=== PATIENT | female | born 1965 | race Caucasian/White ===

== ENCOUNTER → 2018-01-15 15:43 | Outpatient (CLI) | payer OTHER, BC, SELFPAY ==
--- NOTE | 2018-01-15 15:46 | RAD_ITS ---
STUDY: X-RAY - LEFT FOOT CLINICAL: Female, 52 years old. Bump on top of foot. No history of trauma TECHNIQUE: 3 view(s) of the foot. COMPARISON: None. FINDINGS: Normal talus, calcaneus, and tarsal bones. There is arthrosis of visualized subtalar, talonavicular, calcaneocuboid, tarsal and tarsometatarsal articulations. Normal metatarsi. Normal metatarsophalangeal joint of the great toe. Normal tibial and fibular sesamoid bones. Normal interphalangeal joint of the great toe. Normal phalanges of the great toe. Normal second through fifth metatarsophalangeal joints. Normal interphalangeal joints and phalanges of the lesser toes. The soft tissue structures are unremarkable. RAD/Foot min 3 Views IMPRESSION: Arthrosis of the midfoot. The arthrosis at the carpometacarpal articulations may account for the pump along the dorsum of the foot described in patient history. Electronically Signed: Bradford Garcia DO at 16:08 EDT Tel [phone], Service support ,
== END ==
PROVIDERS: Family Provider Family Medicine; PCP Family Medicine; Visit Provider Orthopaedic Surgery
DX: M79.672 Pain in left foot (principal)
CPT/HCPCS: 73630

== ENCOUNTER → 2020-03-14 | Outpatient (CLI) | payer OTHER, BC, SELFPAY ==
[2020-03-10 09:43] VITALS: BMI 38.9
[2020-03-14 08:40] LABS: Hematocrit 44.1 % (37-47); Hemoglobin 13.7 g/dL (12.0-15.0); Mean Corp Hgb Conc 31.1 g/dL (32-36); Mean Corpuscular Hgb 28.1 pg (27.0-32.0); Mean Corpuscular Volume 90.6 fL (81-99); Mean Platelet Vol. 12.5 fl (6.2-12.0); Platelet Count 242 K/mm3 (150-450); RBC Distribution Width CV 14.4 % (11.6-14.6); RBC Distribution Width SD 47.9 fl (35.1-43.9); Red Blood Count 4.87 M/mm3 (4.2-5.4)
[2020-03-14 09:04] LABS: AST(SGOT) 20 U/L (15-37); Alanine Aminotransfer ALT/SGPT 35 U/L (13-56); Albumin, Serum 3.3 g/dL (3.2-5.0); Alkaline Phosphatase 113 U/L (45-117); Anion Gap 6 (5-15); BUN 13 mg/dL (7-18); BUN/Creat Ratio 19.2 RATIO (10-20); Calcium,Total 8.6 mg/dL (8.5-10.1); Chloride 111 mmol/L (98-107); Cholesterol 253 mg/dL (200); Creatinine, Serum 0.68 mg/dL (0.55-1.02); EST Glomerular Filtration Rate 96 mL/min (>60); Est Glom Filt Rate - Afr Amer 116 mL/min (>60); Globulin 3.4 g/dL (2.2-4.2); Glucose 109 mg/dL (74-106); High Density Lipoprotein 30 mg/dL; Potassium 4.8 mmol/L (3.5-5.1); Protein, Total 6.7 g/dL (6.4-8.2); Sodium Level 141 mmol/L (136-145); Triglycerides 303 mg/dL; Very Low Density Lipoprotein 61 mg/dL (5-40)
== END | disposition home or self-care (01) ==
LOC: LAB 08:00
PROVIDERS: PCP Family Medicine; Referring Provider Surgery; Visit Provider Surgery
DX: Z01.818 Encounter for other preprocedural examination (principal); I77.9 Disorder of arteries and arterioles, unspecified
CPT/HCPCS: 36415; 80053; 80061; 85027

== ENCOUNTER → 2020-03-19 | Outpatient (CLI) | payer OTHER, BC, SELFPAY ==
[2020-03-10 09:43] VITALS: BMI 38.9
--- NOTE | 2020-03-19 13:44 | CDU_ITS ---
Reason For Study: Carotid bruit Rt. Velocities/BP Lt. Velocities/BP Prox CCA 77.3/16 cm/sec. Prox CCA 108.4/28.6 cm/sec. Mid CCA 115.6/27.9 cm/sec. Mid CCA 98.6/28.6 cm/sec. Dist CCA 80.9/27.9 cm/sec. Dist CCA 69.1/20 cm/sec. Prox ICA 73.6/24.3 cm/sec. Prox ICA 85.1/24.9 cm/sec. Mid ICA 97.4/44.4 cm/sec. Mid ICA 109.7/31.1 cm/sec. Dist ICA 144.8/44.4 cm/sec. Dist ICA 121.1/44.4 cm/sec. Rt. ICA/CCA = 1.8. Lt. ICA/CCA = 1.2. Prox ECA 117.4/13.3 cm/sec. Prox ECA 99.8/13.9 cm/sec. Rt. Vert. 50.9/15.7 cm/sec. Lt. Vert. 48.7/14.6 cm/sec. Right Extracranial There is intimal thickening but no significant atherosclerotic plaque noted in the right common carotid artery. There is heterogeneous, irregular atherosclerotic plaque noted in the right internal carotid artery. There is intimal thickening but no significant atherosclerotic plaque noted in the right external carotid artery. Antegrade flow is noted in the right vertebral artery. Left Extracranial There is intimal thickening but no significant atherosclerotic plaque noted in the left common carotid artery. There is heterogeneous, irregular atherosclerotic plaque noted in the left internal carotid artery. There is intimal thickening but no significant atherosclerotic plaque noted in the left external carotid artery. Antegrade flow is noted in the left vertebral artery. Procedure Carotid Duplex [id number]. Exam performed in department. Interpretation Summary Minimal calcific plaque of the proximal right internal carotid artery with less than 50% stenosis in the proximal internal carotid. Velocity is slightly elevated in the distal right internal carotid at the site of tortuosity. No significant plaque located at that site. <50% stenosis right external carotid Minimal smooth plaque at the proximal left internal carotid artery with less than 50% stenosis. <50% stenosis left external carotid Patent and antegrade vertebrals bilaterally Ordering Physician: Darron Art Referring Physician: Lily Orosco Performed By: Socorro Jean RVT
--- NOTE | 2020-03-19 14:34 | CT_ITS ---
STUDY: CTA OF THE ABDOMINAL AORTA AND BILATERAL LOWER EXTREMITIES REASON FOR EXAM: Female, 54 years old. PAD, RT TOE PAIN RADIATION DOSAGE (If Supplied By Facility): CTDIvol = ( 11.77 ) mGy, DLP = ( 1618.21 ) mGycm TECHNIQUE: Axial CT angiography multi-detector data acquisition was obtained from the diaphragm to the feet following intravenous administration of IV 100mL Isovue-370. Axial images and MIP images were reconstructed from the axial data set. Post-processing of the angiographic images was performed, with multiplanar reformation and 3D reconstruction. Individualized dose optimization techniques were used for this CT. TECHNICAL QUALITY: Good COMPARISON: None. Descriptors of Narrowing: None (0%) Mild (< 50%) Moderate (50-70%) Severe (70-90%) Subtotal/Total Occlusion (90-100%) Non-Evaluable (technically non-diagnostic FINDINGS: Abdominal aorta: Severe stenosis of the infrarenal aorta just distal to the inferior mesenteric artery. Celiac and superior mesenteric arteries: No demonstrated narrowing. Inferior mesenteric artery: No demonstrated narrowing. Right renal artery(arteries): No demonstrated narrowing. Left renal artery(arteries): No demonstrated narrowing. Right common iliac artery: Mild plaque with no significant narrowing Right external iliac artery: No demonstrated narrowing. Right internal iliac artery: No demonstrated narrowing. Left common iliac artery: Mild plaque with no significant narrowing Left external iliac artery: No demonstrated narrowing. Left internal iliac artery: No demonstrated narrowing. RIGHT LOWER EXTREMITY Right common femoral artery: No demonstrated narrowing. Right profundus femoris: No demonstrated narrowing. Right superficial femoral: No demonstrated narrowing. Right popliteal artery: No demonstrated narrowing. Right tibioperoneal trunk: No demonstrated narrowing. Right anterior tibial artery: Occluded in the lower leg with distal reconstitution above the ankle. Right posterior tibial artery: No demonstrated narrowing. Right peroneal artery: No demonstrated narrowing. LEFT LOWER EXTREMITY Left common femoral artery: No demonstrated narrowing. Left profundus femoris: No demonstrated narrowing. Left superficial femoral: No demonstrated narrowing. Left popliteal artery: No demonstrated narrowing. Left tibioperoneal trunk: No demonstrated narrowing. Left anterior tibial artery: No demonstrated narrowing. Left posterior tibial artery: No demonstrated narrowing. Left peroneal artery: No demonstrated narrowing. Substantially more atrophy of the left gastrocnemius muscle. Incidental 3.8 cm right periuterine or adnexal mass. CT/CTA Abd w/Runoff W/WO Contrast IMPRESSION: High-grade/severe short segment stenosis of the infrarenal aorta just below the patent inferior mesenteric artery. Otherwise, minimal calcific plaque primarily in the common femoral arteries and internal iliac arteries without significant stenosis of the iliac arteries bilaterally. Right lower extremity: Normal common femoral artery, profunda artery, superficial femoral artery, popliteal artery and tibioperoneal trunk without calcified plaque. The posterior tibial artery is visible to the foot. Peroneal artery visible to the ankle. Anterior tibial artery occluded in the lower leg with reconstitution above the ankle. Left lower extremity, normal common femoral, profundus artery, superficial femoral artery, popliteal artery, tibial peroneal trunk without calcified plaque. 3 vessel runoff to the foot/ankle. Incidental 3.8 cm right periuterine or adnexal mass. Complete pelvic ultrasound recommended. Electronically Signed: Alma Murillo MD at 16:08 EDT , Service support ,
== END | disposition home or self-care (01) ==
LOC: CVS 13:44
PROVIDERS: PCP Family Medicine; Referring Provider Surgery; Visit Provider Surgery
DX: I77.9 Disorder of arteries and arterioles, unspecified (principal); R09.89 Other specified symptoms and signs involving the circulatory and respiratory systems
CPT/HCPCS: 75635; 93880; Q9967

== ENCOUNTER → 2020-03-30 | Outpatient (CLI) | payer OTHER, BC, SELFPAY ==
[2020-03-26 07:24] VITALS: BMI 33.8
--- NOTE | 2020-03-30 18:32 | US_ITS ---
STUDY: ULTRASOUND OF THE FEMALE PELVIS - COMPLETE REASON FOR EXAM: Female, [address] RT ADX MASS LMP: The patient is postmenopausal. TECHNIQUE: Transabdominal and Transvaginal TECHNICAL QUALITY: Adequate. COMPARISON: None. FINDINGS: The uterus is anteverted and is in a midline position. The uterus measures 7.1 x 6.3 x 2.7 cm. There are cervical nabothian cysts. The endometrium measures 6 mm in thickness, and is hyperechoic. There is no demonstrated endometrial mass. There are 2 uterine fibroids measuring 4.2 x 3.9 x 3.0 cm and 1.8 x 1.6 x 1.3 cm respectively. I.U.D. - The patient does not have an I.U.D. The right ovary is visualized. The right ovary measures 2.6 x 1.5 x 0.9 cm. There is no right ovarian cyst or ovarian mass. There is no visualized right adnexal mass or complex lesion. There is normal arterial and normal venous vascularity. The left ovary is visualized. The left ovary measures 2.1 x 1.7 x 1.4 cm. There is no left ovarian cyst or ovarian mass. There is no visualized left adnexal mass or complex lesion. There is normal arterial and normal venous vascularity. There is no fluid in the cul-de-sac. The pre void volume of the bladder was 421 ml. Polycystic ovary disease: No. US/Pelvic (Non ) IMPRESSION: Uterine fibroids as described above. Cervical nabothian cysts. Electronically Signed: Jomar Lu MD at 19:34 EDT , Service support ,
--- NOTE | 2020-03-30 18:42 | US_ITS ---
STUDY: ULTRASOUND OF THE FEMALE PELVIS - COMPLETE REASON FOR EXAM: Female, [address] RT ADX MASS LMP: The patient is postmenopausal. TECHNIQUE: Transabdominal and Transvaginal TECHNICAL QUALITY: Adequate. COMPARISON: None. FINDINGS: The uterus is anteverted and is in a midline position. The uterus measures 7.1 x 6.3 x 2.7 cm. There are cervical nabothian cysts. The endometrium measures 6 mm in thickness, and is hyperechoic. There is no demonstrated endometrial mass. There are 2 uterine fibroids measuring 4.2 x 3.9 x 3.0 cm and 1.8 x 1.6 x 1.3 cm respectively. I.U.D. - The patient does not have an I.U.D. The right ovary is visualized. The right ovary measures 2.6 x 1.5 x 0.9 cm. There is no right ovarian cyst or ovarian mass. There is no visualized right adnexal mass or complex lesion. There is normal arterial and normal venous vascularity. The left ovary is visualized. The left ovary measures 2.1 x 1.7 x 1.4 cm. There is no left ovarian cyst or ovarian mass. There is no visualized left adnexal mass or complex lesion. There is normal arterial and normal venous vascularity. There is no fluid in the cul-de-sac. The pre void volume of the bladder was 421 ml. Polycystic ovary disease: No. US/Transvaginal Non- IMPRESSION: Uterine fibroids as described above. Cervical nabothian cysts. Electronically Signed: Jomar Lu MD at 19:34 EDT , Service support ,
== END | disposition home or self-care (01) ==
LOC: US 18:31
PROVIDERS: PCP Family Medicine; Referring Provider Surgery; Visit Provider Surgery
DX: R93.5 Abnormal findings on diagnostic imaging of other abdominal regions, including retroperitoneum (principal)
CPT/HCPCS: 76830; 76856

== ENCOUNTER 2020-04-06 06:41 | Day surgery (SDC) | payer OTHER, BC, SELFPAY ==
[2020-03-26 07:24] VITALS: BMI 33.8
--- NOTE | 2020-04-02 16:46 | EKG12_ITS ---
Test Reason : PRE OP Blood Pressure : / mmHG Vent. Rate : 082 BPM Atrial Rate : 082 BPM P-R Int : 144 ms QRS Dur : 086 ms QT Int : 378 ms P-R-T Axes : 048 015 032 degrees QTc Int : 441 ms Normal sinus rhythm Normal ECG Confirmed by MARIA ROBERT, CECY ([id number]), international editorial producer KULDEEP ANDREW ([id number]) on 04/06/2020 2:04:36 PM Referred By: Darron Art Confirmed By:MARIO SIFUENTES MD
[2020-04-02 18:04] LABS: Hematocrit 41.7 % (37-47); Hemoglobin 13.3 g/dL (12.0-15.0); Mean Corp Hgb Conc 31.9 g/dL (32-36); Mean Corpuscular Hgb 28.3 pg (27.0-32.0); Mean Corpuscular Volume 88.7 fL (81-99); Mean Platelet Vol. 13.6 fl (6.2-12.0); Platelet Count 238 K/mm3 (150-450); RBC Distribution Width CV 14.2 % (11.6-14.6); RBC Distribution Width SD 45.6 fl (35.1-43.9)
[2020-04-02 18:20] LABS: Anion Gap 6 (5-15); BUN 8 mg/dL (7-18); BUN/Creat Ratio 11.6 RATIO (10-20); Calcium,Total 8.8 mg/dL (8.5-10.1); Chloride 109 mmol/L (98-107); Creatinine, Serum 0.69 mg/dL (0.55-1.02); EST Glomerular Filtration Rate 94 mL/min (>60); Est Glom Filt Rate - Afr Amer 113 mL/min (>60); Glucose 83 mg/dL (74-106); Potassium 3.4 mmol/L (3.5-5.1); Sodium Level 141 mmol/L (136-145)
[2020-04-03 08:47] VITALS: BMI 33.8
--- NOTE | 2020-04-06 05:44 | HP.PCM_ITS ---
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 Darron Art MD) Abdominal bruit (Acute) Carotid bruit (Acute) History of tobacco use disorder (Acute) Peripheral arterial disease (Acute) Acquired hammer deformity of great toe (Acute) Disorder of arteries and arterioles, unspecified (Acute) Raynaud disease (Acute) Short Achilles tendon (acquired), unspecified ankle (Acute) Surgical History S/P bilateral foot surgery (Acute) Family History Mother Cancer pancreatic Father Diabetes Heart disease Hypertension Kidney disease CAD (coronary artery disease) Social History (Updated 03/26/20 @ 07:[address] Darron Art MD) Smoking Status: Former smoker second hand exposure: No alcohol intake: never substance use type: does not use caffeine: Yes HPI HPI HPI: BRE CONNELLY, is a 54 F who presents to the office today for ongoing surgical consultation regarding symptomatic peripheral vascular occlusive disease. Her carotid duplex exam does not demonstrate clinically significant disease. Her CTA of the abdomen demonstrates high-grade stenosis of the infrarenal aorta at the takeoff of the inferior mesenteric artery. There is additional disease distally. There is a right periuterine mass of undetermined etiology ultrasound recommended. Her laboratory is notable for a white blood cell count of 12,000 with a hemoglobin of 13.7 and a hematocrit of 44.1. Platelet count 242,000. BUN is 13. Creatinine is 0.68. Triglycerides are elevated at 303. Cholesterol elated to 53. LDL elevated at 162. VLDL elevated at 61. HDL low at 30 Her testing results follows. My previous office interview summary history and physical follows as well: [facility] Imaging Services [address] [place] [address] CTA Abd w/Runoff W/WO Contrast MR#: [id number] Name: BRE CONNELLY #:[id number] : [id number] From: Alma Murillo MD PCP:Dr. Lily Orosco MD Status:REG CLI Study:CTA Abd w/Runoff W/WO Contrast Date of Exam:03/19/20 Exam#[id number] Ordering Dr: Darron Art MD STUDY: CTA OF THE ABDOMINAL AORTA AND BILATERAL LOWER EXTREMITIES REASON FOR EXAM: Female, 54 years old. PAD, RT TOE PAIN RADIATION DOSAGE (If Supplied By Facility): CTDIvol = ( 11.77 ) mGy, DLP = ( 1618.21 ) mGycm TECHNIQUE: Axial CT angiography multi-detector data acquisition was obtained from the diaphragm to the feet following intravenous administration of IV 100mL Isovue-370. Axial images and MIP images were reconstructed from the axial data set. Post-processing of the angiographic images was performed, with multiplanar reformation and 3D reconstruction. Individualized dose optimization techniques were used for this CT. TECHNICAL QUALITY: Good COMPARISON: None. Descriptors of Narrowing: None (0%) Mild (< 50%) Moderate (50-70%) Severe (70-90%) Subtotal/Total Occlusion (90-100%) Non-Evaluable (technically non-diagnostic FINDINGS: Abdominal aorta: Severe stenosis of the infrarenal aorta just distal to the inferior mesenteric artery. Celiac and superior mesenteric arteries: No demonstrated narrowing. Inferior mesenteric artery: No demonstrated narrowing. Right renal artery(arteries): No demonstrated narrowing. Left renal artery(arteries): No demonstrated narrowing. Right common iliac artery: Mild plaque with no significant narrowing Right external iliac artery: No demonstrated narrowing. Right internal iliac artery: No demonstrated narrowing. Left common iliac artery: Mild plaque with no significant narrowing Left external iliac artery: No demonstrated narrowing. Left internal iliac artery: No demonstrated narrowing. RIGHT LOWER EXTREMITY Right common femoral artery: No demonstrated narrowing. Right profundus femoris: No demonstrated narrowing. Right superficial femoral: No demonstrated narrowing. Right popliteal artery: No demonstrated narrowing. Right tibioperoneal trunk: No demonstrated narrowing. Right anterior tibial artery: Occluded in the lower leg with distal reconstitution above the ankle. Right posterior tibial artery: No demonstrated narrowing. Right peroneal artery: No demonstrated narrowing. LEFT LOWER EXTREMITY Left common femoral artery: No demonstrated narrowing. Left profundus femoris: No demonstrated narrowing. Left superficial femoral: No demonstrated narrowing. Left popliteal artery: No demonstrated narrowing. Left tibioperoneal trunk: No demonstrated narrowing. Left anterior tibial artery: No demonstrated narrowing. Left posterior tibial artery: No demonstrated narrowing. Left peroneal artery: No demonstrated narrowing. Substantially more atrophy of the left gastrocnemius muscle. Incidental 3.8 cm right periuterine or adnexal mass. CT/CTA Abd w/Runoff W/WO Contrast IMPRESSION: High-grade/severe short segment stenosis of the infrarenal aorta just below the patent inferior mesenteric artery. Otherwise, minimal calcific plaque primarily in the common femoral arteries and internal iliac arteries without significant stenosis of the iliac arteries bilaterally. Right lower extremity: Normal common femoral artery, profunda artery, superficial femoral artery, popliteal artery and tibioperoneal trunk without calcified plaque. The posterior tibial artery is visible to the foot. Peroneal artery visible to the ankle. Anterior tibial artery occluded in the lower leg with reconstitution above the ankle. Left lower extremity, normal common femoral, profundus artery, superficial femoral artery, popliteal artery, tibial peroneal trunk without calcified plaque. 3 vessel runoff to the foot/ankle. Incidental 3.8 cm right periuterine or adnexal mass. Complete pelvic ultrasound recommended. Electronically Signed: Alma Murillo MD at 16:08 EDT , Service support , [facility] Cardiovascular Services [address] [place] [id number] Carotid Duplex Ultrasound 03/19/20 1410 MR#: [id number] Name:BRE CONNELLY #:[id number] : [id number] 54From:Darron Art MD Attending Dr: ADEOLA Ganntatus: REG CLI Ordering Dr: Darron Art MDDate: 03/19/20 Location:CVSSex:FC Admitted: Reason For Study: Carotid bruit Rt. Velocities/BP Lt. Velocities/BP Prox CCA 77.3/16 cm/sec. Prox CCA 108.4/28.6 cm/sec. Mid CCA 115.6/27.9 cm/sec. Mid CCA 98.6/28.6 cm/sec. Dist CCA 80.9/27.9 cm/sec. Dist CCA 69.1/20 cm/sec. Prox ICA 73.6/24.3 cm/sec. Prox ICA 85.1/24.9 cm/sec. Mid ICA 97.4/44.4 cm/sec. Mid ICA 109.7/31.1 cm/sec. Dist ICA 144.8/44.4 cm/sec. Dist ICA 121.1/44.4 cm/sec. Rt. ICA/CCA = 1.8. Lt. ICA/CCA = 1.2. Prox ECA 117.4/13.3 cm/sec. Prox ECA 99.8/13.9 cm/sec. Rt. Vert. 50.9/15.7 cm/sec. Lt. Vert. 48.7/14.6 cm/sec. Right Extracranial There is intimal thickening but no significant atherosclerotic plaque noted in the right common carotid artery. There is heterogeneous, irregular atherosclerotic plaque noted in the right internal carotid artery. There is intimal thickening but no significant atherosclerotic plaque noted in the right external carotid artery. Antegrade flow is noted in the right vertebral artery. Left Extracranial There is intimal thickening but no significant atherosclerotic plaque noted in the left common carotid artery. There is heterogeneous, irregular atherosclerotic plaque noted in the left internal carotid artery. There is intimal thickening but no significant atherosclerotic plaque noted in the left external carotid artery. Antegrade flow is noted in the left vertebral artery. Procedure Carotid Duplex 32414. Exam performed in department. Interpretation Summary Minimal calcific plaque of the proximal right internal carotid artery with less than 50% stenosis in the proximal internal carotid. Velocity is slightly elevated in the distal right internal carotid at the site of tortuosity. No significant plaque located at that site. <50% stenosis right external carotid Minimal smooth plaque at the proximal left internal carotid artery with less than 50% stenosis. <50% stenosis left external carotid Patent and antegrade vertebrals bilaterally Ordering Physician: Darron Art Referring Physician: Lily Orosco Performed By: Socorro Jean RVT 03/19/20 1502 Intake Visit Reasons: PERIPHERAL ARTERIAL DISEASE Chief Complaint: PAD Intensive Care Nurse Required: No Is patient in pain?: No Allergies No Known Allergies Allergy (Verified 03/10/20 09:44) Medications No Known/Unobtainable [No Known Home Medications] 05/27/17 [History Confirmed 03/10/20] [facility] Medical History (Updated 03/10/20 @ 14:[address] Darron Art MD) Abdominal bruit (Acute) Carotid bruit (Acute) History of tobacco use disorder (Acute) Peripheral arterial disease (Acute) Acquired hammer deformity of great toe (Acute) Disorder of arteries and arterioles, unspecified (Acute) Raynaud disease (Acute) Short Achilles tendon (acquired), unspecified ankle (Acute) Surgical History S/P bilateral foot surgery (Acute) Family History Mother Cancer pancreatic Father Diabetes Heart disease Hypertension Kidney disease CAD (coronary artery disease) Social History (Updated 03/10/20 @ 15:[address] Darron Art MD) Smoking Status: Former smoker alcohol intake: never HPI HPI HPI: RYAN CONNELLY, is a 54 F who presents to the office today for surgical consultation regarding blue toes. The patient is referred by Dr.Nicole Mayes and a written copy of my surgical consult recommendations will return to her as well as forwarded on to Dr. Lily ramos. 54-year-old female. She complains of 1 month history of purple discoloration of the right first second and third digit of her foot. Initially was painful. Now only at the second digit that is painful. She has been a lifelong cigarette smoker until 1 to 2 weeks ago. This was at the rate of a pack per day. She denies myocardial infarction or stroke. Her lifestyle is sedentary. Her occupation is sewing. She notes however pertinent family history that her father had diabetes chronic renal failure and an SD I believe when he was in his young 50s. Her mother had pancreatic cancer. She denies fever or chills or sweats or shortness of breath. She denies weight change. She denies other acute event. She states that she has not had a lipid panel obtained. She does not recall CVA or TIA. She has not had carotid duplex imaging. There was concern on referral that she might have [facility] on February 26, 2020 she had bilateral lower extremity noninvasive arterial exam at rest. Bilateral femoral popliteal posterior tibial and Ronnell Rivers pedis Doppler waveforms were all monophasic throughout. The right PAVAN was 0.51 and the left PAVAN 0.61 The patient does state that her right foot is much more painful when it becomes cool. She denies though any symptoms that sound like calf claudication. She states she is able to walk on level ground. She is able to walk an incline. She claims she is able to do stairs. HPI HPI HPI: RYAN CONNELLY, is a 54 F who presents to the office today for ROS General General: No weight change, appetite, fatigue, colon cancer, breast cancer or weakness HEENT HEENT: No difficulty swallowing, eye injury, eye surgery, swollen glands or hoarseness Endo Endocrine: No thyroid disease, diabetes mellitus, thyroid cancer, Hair loss, heat intolerance or cold intolerance Skin Skin: No rash or changing moles Breast Breast: No left breast lump, right breast lump, nipple discharge, breast pain, abnormal mammogram, abnormal US or breast enlargement Musc Musculoskeletal: No back problems, arthritis, rheumatoid arthritis, gout or joint pain Cardio Cardiovascular: No murmur, pacemaker, heart disease, atrial fibrillation, high blood pressure, heart attack, heart stent, palpitations, shortness of breat with exertion or chest pain Psych Psychiatric: No depression, anxiety or hearing voices Resp Respiratory: No shortness of breath, No sleep apnea, No cough, No COPD, No asthma, No emphysema, No wheezing Gastro Gastrointestinal: No abdominal pain, No nausea or vomiting, No diarrhea, No constipation, No blood in stool, No acid reflux, No hemorrhoids, No ulcers, No gallbladder problem, No black,tarry stools Shilo Hematologic: No blood thinners, No blood disorders, No bleeding, No anemia, No b lood clots Neuro Neurologic: No system reviewed and no additional complaints, except as docu, No as per HPI, No abnormal walking, No abnormal hearing, No abnormal movements, No abnormal speech, No behavioral changes, No burning sensations, No confusion, No seizure-like activity, No unsteadiness, No dizziness, No localized weakness, No frequent falls, No headache(s), No lack of coordination, No loss of vision, No memory loss, No numbness, No other visual disturbances, No radiating pain, No restless legs, No sensory deficit, No fainting, No tingling, No tremor(s), No weakness, No other Exam Const General: cooperative, comfortable, no acute distress Nutritional Appearance: obese Orientation: alert, awake HENPA Head: normal to inspection Chest Breast Palpation: No nipple discharge Other: Increased anterior posterior diameter Resp Auscultation: clear to auscultation bilaterally Other: Diminished respiratory excursion Cardio Rate: regular rate Rhythm: regular rhythm Heart Sounds: no murmurs Other: Bilateral brachials and radials are 2+. Bilateral carotids 2+. Possible soft bruit on the right. Bilateral femorals and popliteals and DPs and PTs are not palpable GI Palpation: soft Other: Overweight. I am not able to detect any internal organs. Not pulsatile or expansile. Soft 1/6 systolic murmur mid abdomen Musc Cervical Spine: normal cervical lordosis Neuro Cognition: normal cognition Extrem Other: Evidence of previous bilateral Achilles tendon surgery with chronic old vertical well-healed incision. Elevation pallor or dependent rubor bilateral feet. Violaceous discoloration to the right first second and third digits. Coolness of both feet particularly from the forefoot distally. Diminished capillary refill bilaterally Psych Affect: normal affect Assessment & Plan Problems 1. Peripheral arterial disease I73.9 2. History of tobacco use disorder Z87.891 3. Bruit of right carotid artery R09.89 4. Abdominal bruit R09.89 Plan Findings are highly suspicious for aortoiliac occlusion. She likely has multi segmental peripheral arterial occlusive disease of a severe nature. I have encouraged the patient to remain off of her cigarettes. I have suggested to her that she initiate a 81 mg aspirin daily while awaiting testing. I recommend carotid duplex imaging for the carotid bruit. I recommend a CTA of the abdomen to better understand the severity and degree of her occlusions I recommend that we obtain a complete metabolic profile and a CBC and a lipid panel. We will then have the patient return to the office to see if we can provide her intervention locally. She has had an opportunity to ask and have questions answered. I very much appreciate the kind opportunity of assisting with her surgical care. Cc: Dr. Nanda Mayes and Dr. Liyl Art M.D., F.A.C.S. HPI HPI HPI: BRE CONNELLY, is a 54 F who presents to the office today for Assessment & Plan Problems 1. PAD (peripheral artery disease) I73.9 Plan Today was a 20-minute [id number] consultative appointment regarding the patient's carotid duplex exam and CTA of the abdomen. The CT of the abdomen demonstrated a near total occlusion of the infrarenal abdominal aorta at the level of the inferior mesenteric artery. Also demonstrated a right periuterine mass. Carotid duplex exam did not show clinically significant disease. In the interim the patient is been seen by Dr. Lily Orosco. Dietary recommendations were made. The patient is remaining off her tobacco for the moment. She was initiated on lisinopril 20 mg daily and atorvastatin 20 mg daily and fish oil 1000 mg twice daily. With the patient's present I had an extensive discussion regarding endovascular treatment of her aortic occlusion. I recommended using a [place] VBX graft. The patient is aware that this is off label. We had a discussions of discussion regarding that implication. I would anticipate using a 45 cm [place] sheath to get up past the area and then serially dilate the balloon up from there. I would anticipate using a 11 mm diameter VBX balloon. She is aware of the technique, benefit, risk of alternatives. She is aware that her common femoral and iliac vessels are rather small likely based upon disuse. She is aware that she has additional occlusions distally but I believe that the aortic disease is most pertinent. She is aware that I am anticipating utilizing a covered stent graft. This will occlude the inferior mesenteric artery. Based upon her other vessels she should have collateral flow. I am recommending that we obtain a pelvic ultrasound to evaluate the right periuterine mass. She is aware that I would then recommend either primary care follow-up or gynecologic follow-up regarding ongoing discussion and issues regarding that incidental finding. She will be maintained on her newly started medications. I have asked her to hold her fish oil 1 week prior to her planned endovascular intervention to assist us with bleeding post common femoral intervention. She is aware that a unilateral or if need be bilateral approach will be entertained retrograde from the common femorals. I will recommend that we have monitored anesthesia care present. She has had an opportunity to ask and have questions answered. She is aware there are no guarantees of success. We will schedule and proceed at her discretion. Her renal function appears stable and is noted this is in a infrarenal position. I appreciate the ongoing opportunity of assisting with her surgical care Cc: Dr. Lily Art M.D., F.A.C.S. Orders Orders: Pelvic (Non ) Today R19.00, R93.5 Coding Level of Care Code Off vis,est,level 2 Diagnoses PAD (peripheral artery disease) I73.9 03/26/20 0748 <Electronically signed by Darron whitehead MD> Date _ Darron Art MD I have re-examined the patient. There are no clinical changes since date of exam. Procedure Criteria Procedure Type: Elective COVID Risk Discussion: The surgeon/proceduralist and patient have discussed in detail the risk of exposure to and/or potential harm posed by the COVID-19 virus with having a surgery/procedure at this time versus the risk of delaying the surgery/procedure. It is not possible to know either the risk of delaying the surgery or procedure or chance of getting an infection with perfect accuracy, but a joint decision was made between the patient and the surgeon/proceduralist to proceed at this time with the scheduled surgery/procedure as indicated on the consent form.
--- NOTE | 2020-04-06 08:22 | PCM.OPRPT ---
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 Reference number [id number], serial #[id number] Description of Surgical Findings:: Timeout and informed consent was obtained. 54-year-old female was taken to the special procedures lab. She was placed supine on the table. Anesthesia was present performed monitored anesthesia care. The patient received 2 g of Ancef intravenously. Bilateral groins were sterilely prepped and draped. Ultrasound was used to identify the right common femoral artery and its bifurcation with the superficial femoral and profundofemoral. Superior to that bifurcation 2% lidocaine was instilled as a local anesthetic. Micropuncture needle inserted micropuncture wire inserted micropuncture sheath inserted 035 J-wire was inserted 5 [place] short sheath that was inserted. Then a 035 J-wire was inserted and 2 preclosed devices were placed the first 1 from 10:00 to 4:00 and the second 1 from 2:00 to 8:00.. Then an 035 Magic wire was inserted. A 8 Korean destination sheath was inserted. Using an 035 angled Glidewire and a 5 [place] universal flush catheter was able to find the very diminutive central channel to the tight infrarenal abdominal aortic stenosis. I was able to advance the Glidewire advance a flush catheter. Using Visipaque contrast 3 to 15 cc a second for 10 cc an AP aortogram was obtained. This demonstrated irregular high-grade 3 to 4 cm long stenosis of the infrarenal abdominal aorta. Unfortunate this was involving the orifice of the inferior mesenteric artery. Bilateral common iliacs were widely patent as were the external iliacs and internal iliacs. Bilateral renal arteries patent. The patient received 9000 units of heparin. I was able to advance the destination sheath. We placed a 11 x 59 mm Viabahn VBX stent graft. That was inserted a retrograde flush study was obtained to assure correct positioning. The balloon was then insufflated to 15 ronnie of pressure to get 12 mm diameter on the device. The patient had absolutely no discomfort with that. The balloon was held at 15 ronnie for 24 seconds with no drift. The balloon was removed. Flush catheter was replaced into the abdominal aorta proximal to the stent. Using 15 cc a second for 10 cc a flush aortogram was again obtained. This demonstrated excellent positioning of the stent graft. There was complete resolution of the area of irregular atherosclerotic stenosis. There was good approximation of the stent. There was good flow bilaterally. Carefully removed the flush catheter. The sheath was removed from the right groin and the Perclose devices were then subsequently secured. Complete hemostasis was immediately obtained. No apparent complication. The feet were inspected. Patient had bilateral 2+ popliteal pulses and 2+ bilateral PT pulses. Feet appear to be warm and viable. There were no apparent complications. Blood loss was minimal. The aortogram demonstrated patent renal arteries bilaterally. There is dominant lumbar vessel seen. The KEMAL is involved in the area of high-grade irregular stenosis. The stenosis however ends proximal to the aortic bifurcation. Bilateral common ask external iliac and internal iliacs appear to be patent. Subsequent to the stent graft placement now there is complete resolution of the area of irregular atherosclerotic plaque and wide open flow into the iliac bifurcation. Darron Art M.D., F.A.C.S. Type of Anesthesia:: Local MAC Anesthesiologist: Skylar Will
[2020-04-06 08:26] LABS: ACT Activated Clotting Time 208 sec (74-137)
[2020-04-06 08:26] LABS: ACT Activated Clotting Time 109 sec (74-137)
== END 2020-04-06 11:40 | disposition home or self-care (01) ==
LOC: SDC 06:42
PROVIDERS: Anesthesiology; PCP Family Medicine; Referring Provider Surgery; Visit Provider Surgery
DX: I35.0 Nonrheumatic aortic (valve) stenosis (principal); I73.9 Peripheral vascular disease, unspecified; R09.89 Other specified symptoms and signs involving the circulatory and respiratory systems; E66.9 Obesity, unspecified; E78.00 Pure hypercholesterolemia, unspecified; I10 Essential (primary) hypertension; Z68.33 Body mass index [BMI] 33.0-33.9, adult; Z87.891 Personal history of nicotine dependence; Z11.59 Encounter for screening for other viral diseases; Z79.899 Other long term (current) drug therapy
CPT/HCPCS: 36200; 36415; 37236; 75625; 76937; 80048; 85027; 85347; 87635; 93005; 94799; J7030; J7040; Q9967; C1760; C1769; C1874; C1894; U0003

== ENCOUNTER → 2020-06-16 07:39 | Outpatient (CLI) | payer OTHER, BC, SELFPAY ==
[2020-04-16 06:38] VITALS: BMI 33.8
--- NOTE | 2020-06-16 07:39 | ART_ITS ---
Reason For Study: claudication Procedure A bilateral lower extremity continuous wave Doppler with analog waveform analysis,segmental pressures,and ankle brachial indexes with exercise. Left Segmental Pressures Left brachial= 115mmHg. Left thigh = 133mmHg. Left calf = 108mmHg. Left posterior tibial artery = 110mmHg. Left dorsalis pedis artery = 112mmHg. The left dorsalis pedis waveforms are biphasic. The left posterior tibial artery waveforms are biphasic. Right Segmental Pressures Right brachial= 126mmHg. Right thigh = 143mmHg. Right calf = 127mmHg. Right posterior tibial artery = 116mmHg. Right dorsalis pedis artery = 112mmHg. The right dorsalis pedis waveforms are biphasic. The right posterior tibial artery waveforms are biphasic. Indices The right ankle brachial index by the dorsalis pedis is .89. The right ankle brachial index by the posterior tibial artery is .92. The right post exercise ankle brachial index is 1.01. The left ankle brachial index by the dorsalis pedis is .89. The left ankle brachial index by the posterior tibial artery is .87. The left post exercise ankle brachial index is .84. Interpretation Summary Moderately severe bilateral lower extremity arterial occlusive disease at rest with appropriate change to exercise right lower extremity and abnormal slight decline with ankle-brachial index with exercise left lower extremity Ordering Physician: Darron Art Performed By: Tommy Vaughan RVT and Student
== END ==
LOC: CVS 07:39
PROVIDERS: PCP Family Medicine; Referring Provider Surgery; Visit Provider Surgery
DX: I73.9 Peripheral vascular disease, unspecified (principal); I70.0 Atherosclerosis of aorta
CPT/HCPCS: 93924

== ENCOUNTER 2020-11-17 08:36 | Outpatient (RCR) | payer OTHER, SELFPAY ==
[2020-04-16 06:38] VITALS: BMI 33.8
[2020-11-17] MEDS: COVID-19 VACC, MRNA(PFIZER)/PF 30 MCG/0.3 ML SYRINGE IM (17:45)
[2020-12-08] MEDS: COVID-19 VACC, MRNA(PFIZER)/PF 30 MCG/0.3 ML SYRINGE IM (17:26)
== END 2021-02-09 23:59 ==
LOC: IMMUN 08:36
PROVIDERS: PCP Family Medicine; Visit Provider Family Medicine
DX: Z23 Encounter for immunization (principal)
CPT/HCPCS: 0001A; 0002A; 91300

== ENCOUNTER → 2022-06-29 | Outpatient (CLI) | payer OTHER, BC, SELFPAY ==
--- NOTE | 2022-06-29 16:08 | RAD_ITS ---
EXAM: XR LEFT FOOT COMPLETE, 3 OR MORE VIEWS CLINICAL INDICATION: Cutaneous abscess TECHNIQUE: Frontal, lateral and oblique views of the left foot. This report was created using [employer] report generation technology. COMPARISON: None. FINDINGS: BONES/JOINTS: There is an enthesophyte involving the posterior superior calcaneus at the site of insertion of the Achilles tendon. No acute fracture. No subluxation. Normal alignment. Preservation of the joint space. No sclerotic or destructive changes observed. SOFT TISSUES: There is soft tissue swelling overlying the first digit. This is at the plantar aspect. No radiopaque foreign body. RAD/Foot min 3 Views IMPRESSION: There is soft tissue swelling overlying the first digit. This is at the plantar aspect. Electronically Signed: Gabino Hoang MD at 16:27 EDT ,
== END | disposition home or self-care (01) ==
PROVIDERS: PCP Family Medicine; Referring Provider Podiatrist; Visit Provider Podiatrist
DX: L02.91 Cutaneous abscess, unspecified (principal)
CPT/HCPCS: 73630

== ENCOUNTER → 2022-08-24 | Outpatient (CLI) | payer OTHER, BC, SELFPAY ==
--- NOTE | 2022-08-24 12:40 | MRI_ITS ---
EXAM: MR LEFT LOWER EXTREMITY WITHOUT INTRAVENOUS CONTRAST, FOOT CLINICAL INDICATION: LEET FOOT PAIN TECHNIQUE: Multiplanar and multisequence MR images of the left foot without intravenous contrast. This report was created using [employer] report generation technology. COMPARISON: None. FINDINGS: LIGAMENTS: MEDIAL COLLATERAL: Unremarkable. Intact. LATERAL COLLATERAL: Unremarkable. Intact. LISFRANC: Unremarkable. Intact. TENDONS: FLEXOR: Flexor hallucis longus tendon shows no tenosynovitis or tendon tearing. EXTENSOR: Remaining flexor and extensor tendons are unremarkable. PERONEAL: Unremarkable. Intact. TIBIALIS ANTERIOR: Unremarkable. Intact. TIBIALIS POSTERIOR: Unremarkable. Intact. MUSCLES: Diffuse muscle atrophy involving the forefoot. FLUID: Unremarkable. No joint effusion. PLANTAR FASCIA: Unremarkable. Intact. BONES/JOINTS: At the level of the first metatarsal head, there is edema involving the medial sesamoid. This may be related to trauma such as a subtle fracture or bone contusion or could also be related to ischemia. No hallux valgus deformity. Normal forefoot alignment. No joint effusion. OTHER SOFT TISSUES: Unremarkable. OTHER FINDINGS: . MRI/Lower Ext/No Jt/w/o IMPRESSION: At the level of the first metatarsal head, there is edema involving the medial sesamoid. This may be related to trauma such as a subtle fracture or bone contusion or could also be related to ischemia. No other significant internal derangement. Electronically Signed: Stephon Jarvis MD at 3:58 EST Reading Location ID and State: [address] [place] [address] Tel , Service support ,
== END | disposition home or self-care (01) ==
LOC: MRI 12:22
PROVIDERS: PCP Family Medicine; Referring Provider Podiatrist; Visit Provider Podiatrist
DX: D21.22 Benign neoplasm of connective and other soft tissue of left lower limb, including hip (principal)
CPT/HCPCS: 73718